=== PATIENT | female | born 1995 | race Two or more races ===

== ENCOUNTER 2022-07-05 16:00 | Emergency (ER) | payer OTHER ==
[~2022-07-05] VITALS: Ht 149.9 cm; Wt 48.1 kg
[2022-07-05] MEDS ORDERED: PRENATAL + DHA1 EAC1 PO (16:09)
[2022-07-05] MEDS ORDERED: ZOFRAN8 MG PO (16:10)
[2022-07-05] MEDS ORDERED: SYNTHROID150 MCG PO (16:10)
== END 2022-07-05 19:08 | disposition home or self-care (01) ==
LOC: ER 16:00
DX: O26.892 Other specified pregnancy related conditions, second trimester (principal); R00.2 Palpitations; Z3A.19 19 weeks gestation of pregnancy; Z91.013 Allergy to seafood

== ENCOUNTER 2022-08-15 14:08 | Outpatient (CLI) | payer OTHER ==
[~2022-08-15 14:08] MED LIST: PRENATAL + DHA1 EAC1 PO; SYNTHROID150 MCG PO; ZOFRAN8 MG PO
== END 2022-08-15 18:06 | disposition home or self-care (01) ==
LOC: OBS/DEL 14:08
PROVIDERS: ATTEND Obstetrics & Gynecology Gynecology
DX: O26.892 Other specified pregnancy related conditions, second trimester (principal); Z3A.25 25 weeks gestation of pregnancy; R10.2 Pelvic and perineal pain; Z91.013 Allergy to seafood

== ENCOUNTER 2022-08-18 08:13 | Outpatient (CLI) | payer OTHER | END 2022-08-18 09:07 | disposition home or self-care (01) | LOC: NST 08:13 | PROVIDERS: ATTEND Obstetrics & Gynecology Gynecology | DX: Z34.83 Encounter for supervision of other normal pregnancy, third trimester (principal) ==